=== PATIENT | female | born 1960 | race African-American/Black ===

== ENCOUNTER 2018-02-03 05:56 | Day surgery (SDC) | payer OTHER ==
[2018-02-03] MEDS ORDERED: SOD CHLORIDE 0.9% 1,000 ML IV (06:30)
[2018-02-03] MEDS ORDERED: GLYCOPYRROLATE 0.4 MG INJ (06:32)
[2018-02-03] MEDS ORDERED: NEOSTIGMINE 3 MG/3 ML SYRINGE (06:33)
[2018-02-03] MEDS ORDERED: DEXAMETHASONE 4 MG/ML 1 ML INJ (06:33)
[2018-02-03] MEDS ORDERED: FENTAnyl 50 MCG/ML VIAL (06:33)
[2018-02-03] MEDS ORDERED: LIDOCAINE 2% (SDV) 5 ML INJ (06:33)
[2018-02-03] MEDS ORDERED: MIDAZOLAM 1 MG/ML 2 ML INJ (06:33)
[2018-02-03] MEDS ORDERED: ROCURONIUM 50 MG INJ (06:33)
[2018-02-03] MEDS ORDERED: PROPOFOL 20 ML (06:33)
[2018-02-03] MEDS ORDERED: SUGAMMADEX SODIUM 200 MG/2 ML VIAL IV (06:34)
[2018-02-03] MEDS ORDERED: ONDANSETRON 4 MG INJ (06:34)
[2018-02-03] MEDS ORDERED: FLUMAZENIL 0.5 MG INJ (07:00)
[2018-02-03] MEDS ORDERED: CEFAZOLIN 1 GM INJ (07:00)
[2018-02-03] MEDS ORDERED: LABETALOL HCL 20MG INJ IV (07:30)
[2018-02-03] MEDS ORDERED: OXYCODONE/ACETAMINOPHEN (5/325) TAB PO ×4 (07:30→09:00)
[2018-02-03] MEDS ORDERED: FENTAnyl 50 MCG/ML VIAL IV (07:30)
[2018-02-03] MEDS ORDERED: hydrALAzine 20 MG INJ IV (07:30)
[2018-02-03] MEDS ORDERED: DIPHENHYDRAMINE 50 MG INJ IV (07:30)
[2018-02-03] MEDS ORDERED: HYDROmorphONE 1 MG/5 ML IV SYRINGE IV ×2 (07:30)
[2018-02-03] MEDS ORDERED: ATROPINE 1 MG/10 ML SYRINGE IV (07:30)
[2018-02-03] MEDS ORDERED: morphine (1 MG/ML) 10ML SYRINGE IV ×3 (07:30)
[2018-02-03] MEDS ORDERED: MEPERIDINE 25 MG INJ IV (07:30)
[2018-02-03] MEDS ORDERED: EPHEDrine SULFATE 50 MG/5 ML SYG IV (07:30)
[2018-02-03] MEDS ORDERED: MIDAZOLAM 1 MG/ML 2 ML INJ IV (07:30)
[2018-02-03] MEDS: CEFAZOLIN 2 GM/50 ML (PMX) 50 ML IVPB (07:49)
[2018-02-03] MEDS ORDERED: SUCCINYLCHOLINE CHLORIDE 100 MG/5 ML SYG IV (08:04)
[2018-02-03] MEDS: BUPIVACAINE 0.25%/EPI (SDV) 30 ML INJ (08:08)
[2018-02-03] MEDS ORDERED: hydrALAzine 20 MG INJ (08:20)
[2018-02-03] MEDS ORDERED: LABETALOL HCL 20MG INJ (08:22)
[2018-02-03] MEDS: POLYMYXIN/BACITRACIN 1L IRRIG IRR (08:37)
[2018-02-03] MEDS ORDERED: ONDANSETRON 4 MG INJ IV (09:00)
[2018-02-03] MEDS ORDERED: morphine 2 MG INJ IV (09:00)
[2018-02-03] MEDS: FENTAnyl 50 MCG/ML VIAL IV (09:38)
[2018-02-03] MEDS: HYDROmorphONE 1 MG/5 ML IV SYRINGE IV (09:38)
[2018-02-03] MEDS: ONDANSETRON 4 MG INJ IV (10:03)
[2018-02-03] MEDS: KETOROLAC 30 MG INJ IV (10:04)
[2018-02-03] MEDS ORDERED: IBUPROFEN 600 MG TAB PO (22:00)
== END 2018-02-03 11:49 | disposition home or self-care (01) ==
LOC: SDS 05:56
DX: K43.9 Ventral hernia without obstruction or gangrene (principal)
CPT/HCPCS: 49652; 71045